=== PATIENT | female | born 2000 | race Caucasian/White ===

== ENCOUNTER 2025-09-22 22:16 | Emergency (ER) | payer MEDICAID ==
[~2025-09-22] VITALS: Ht 160 cm; Wt 127.0 kg
[2025-09-22 22:20] VITALS: O2SAT 100
[2025-09-22] MEDS: ACETAMINOPHEN 325MG TABLET PO ONE (23:30)
[2025-09-23] MEDS: LIDOCAINE HCL 1% 20ML VIAL INFIL ONE (00:30)
[2025-09-23] MEDS: KETOROLAC 30MG/ML VIAL IM ONE (01:11)
[2025-09-23] MEDS ORDERED: CEPH500C2 MT (02:01)
[2025-09-23] MEDS ORDERED: SULF1TAB48 MT (02:01)
[2025-09-23] MEDS ORDERED: IBUP-1455 PO (02:02)
[2025-09-23] MEDS: BACITRACIN ZINC OINT UDPKT TOP NR (02:32)
[2025-09-23 02:33] VITALS: BP 157/90; PULSE 88; RESP 16; TEMP 36.9; O2SAT 98
== END 2025-09-23 02:36 | disposition home or self-care (01) ==
LOC: ER 22:16
DX: N75.1 Abscess of Bartholin's gland (principal)
CPT/HCPCS: 99284; 56405; 81025; 96372; J1885; 56420